=== PATIENT | female | born 1980 | race Two or more races ===

== ENCOUNTER 2022-08-15 17:08 | Emergency (ER) | payer MEDICAID, OTHER ==
[~2022-08-15] VITALS: Ht 160 cm; Wt 85.0 kg
[2022-08-15 17:09] VITALS: BP 140/72
== END 2022-08-16 02:47 | disposition left against medical advice (07) ==
LOC: ER 17:08
DX: T65.91XA Toxic effect of unspecified substance, accidental (unintentional), initial encounter (principal); R07.89 Other chest pain; R51.9 Headache, unspecified; Z88.6 Allergy status to analgesic agent; Y92.89 Other specified places as the place of occurrence of the external cause
CPT/HCPCS: 93005